=== PATIENT | male | born 1995 | race Asian ===

== ENCOUNTER → 2022-03-11 | Outpatient (CLI) | payer OTHER | LOC: M CARPUL 09:17 | PROVIDERS: ATTEND Allergy & Immunology | DX: R05.9 Cough, unspecified (principal) ==

== ENCOUNTER → 2022-06-04 | Outpatient (CLI) | payer OTHER | LOC: M RAD 10:56 | PROVIDERS: ATTEND Physician Assistant | DX: R06.2 Wheezing (principal) ==